=== PATIENT | female | born 2000 | race Caucasian/White ===

== ENCOUNTER 2023-08-16 15:45 | Inpatient (IN) | payer OTHER, SELFPAY ==
[2023-08-16] VITALS (12 sets, daily range): BP systolic 105–132; BP diastolic 68–90; PULSE 72–113; TEMP 36.4; BMI 36.5
[2023-08-16] MEDS: miSOPROStol 25 MCG TABLET 50 MCG BUCCAL ×2 (16:53→21:08)
[2023-08-16 16:55] LABS: Basophils Percent Auto 0.5 % (0.2-1.2); Eosinophils Absolute Auto 0.3 K/mm3 (0-0.3); Eosinophils Percent Auto 2.9 % (0-4.4); Hematocrit 36.8 % (37.0-47.0); Immature Granulocyte Absolute 0.03 K/mm3 (0.00-0.031); Immature Granulocyte Percent A 0.4 % (0-0.5); Lymphocytes Absolute Auto 1.55 K/mm3 (0.9-3.2); Lymphocytes Percent Auto 18.2 % (18.3-44.2); Mean Corpuscular HGB Conc 35.3 g/dl (32-36); Mean Corpuscular Hemoglobin 29.1 pg (26-34); Mean Corpuscular Volume 82.3 fl (80-100); Mean Platelet Volume 11.1 fl (7.4-10.4); Monocytes Absolute Auto 0.9 K/mm3 (0.1-0.6); Monocytes Percent Auto 10.4 % (2.6-8.5); Neutrophils Absolute Auto 5.8 K/mm3 (1.3-6.7); Neutrophils Percent Auto 67.6 % (45.5-73.1); Platelet Count Result 218 k/mm3 (150-375); Red Blood Count 4.47 M/mm3 (4.2-5.4); Red Cell Distribution Width 13.1 % (11.5-14.5); White Blood Count 8.5 K/mm3 (4.5-10.0)
[2023-08-16] MEDS: AMPICILLIN 2 GM/NS 100 ML 2 GM/100 ML BAG IVPB (16:57)
[2023-08-16 17:53] LABS: HIV 1/2 Ab P24 Ag Result Negative (Negative)
[2023-08-16] MEDS: AMPICILLIN 1 GM/NS 50 ML 1 GM/50 ML BAG IVPB (21:00)
--- NOTE | 2023-08-16 22:41 | PM.IMHP ---
H&P: HPI History of Present Illness Date/Time: 08/16/23 22:41 Chief Complaint: elective induction of labor Narrative: Patient is a 22 year old who presents for elective induction of labor. Her has been overall uncomplicated. She denies strong contractions, leakage of fluid or vaginal bleeding. She reports good movement. Denies nausea, vomiting, abdominal pain, or dysuria. Review of Systems Review of Systems: All systems reviewed & are unremarkable except as noted in HPI and below PMFSH Family History Family History Grandparent Leukemia Mother Hypertension Social History Social History Smoking status: Never smoker Second hand tobacco smoke exposure: No Substance use: never Do You Feel Safe in your Home?: Yes Lack of Transportation: No Lack of Food: Never True Current Housing: I Have Housing Concerned About Future Housing: No Difficulty Paying Gas/Electric Bills: No Difficulty Paying for Meds: No Currently Unemployed: No Education: Master's Degree or Higher Difficulty w/ Childcare or Family Care: No Spiritual care concerns: No Meds Home Medications and Allergies Home Medications Medication Instructions Recorded Confirmed Type albuterol 90 mcg/actuation aerosol 90 mcg inhalation PRN PRN Wheezing 07/25/23 07/25/23 History inhaler vits no.126-ferrous fum 1 tablet PO DAILY 07/25/23 07/25/23 History 28 mg iron-folic acid 800 mcg tablet (Classic ) Allergies Allergy/AdvReac Type Severity Reaction Status Date / Time No Known Allergies Allergy Verified 07/25/23 12:32 Vital Signs Vital Signs - 24 hr 08/16/23 16:14 08/16/23 16:29 08/16/23 17:01 Temperature Pulse Rate 113 H 98 99 Blood Pressure 118/78 128/84 113/75 Oxygen Delivery 08/16/23 17:30 08/16/23 17:00 08/16/23 18:00 Temperature 97.6 F Pulse Rate 90 80 Blood Pressure 116/76 121/76 Oxygen Delivery 08/16/23 18:30 08/16/23 19:00 08/16/23 20:00 Temperature Pulse Rate 83 79 72 Blood Pressure 121/84 119/77 117/74 Oxygen Delivery 08/16/23 21:00 08/16/23 22:00 08/16/23 16:21 Temperature Pulse Rate 81 80 Blood Pressure 132/90 123/68 Oxygen Delivery Room Air Exam Const: General: comfortable and no acute distress HENMT: Mouth: Yes moist mucous membranes Resp: Effort & Inspection: normal respiratory effort Cardio: Rate: regular rate Rhythm: regular rhythm Skin: General skin exam: normal color Extrem: General: normal to inspection Psych: Mental Status: mental status grossly normal H&P: Results Labs Labs: Short CBC 08/16/23 Range/Units 16:50 WBC 8.5 (4.5-10.0) K/mm3 Hgb 13.0 (12.0-15.0) g/dL Hct 36.8 L (37.0-47.0) % Plt Count 218 (150-375) k/mm3 Assessment and Plan Assessment and plan (1) Encounter for elective induction of labor: Code(s): Z34.90 - Encounter for supervision of normal , unspecified, unspecified trimester Status: Acute Assessment and Plan: - SVE /-3 on admission per RN - cytotec per protocol - FHR category I
[2023-08-17] VITALS (189 sets, daily range): BP systolic 99–155; BP diastolic 35–135; PULSE 55–120; RESP 18–20; TEMP 36.2–37.3; O2SAT 89–100
[2023-08-17] MEDS: AMPICILLIN 1 GM/NS 50 ML 1 GM/50 ML BAG IVPB ×4 (01:00→12:58)
[2023-08-17] MEDS: miSOPROStol 25 MCG TABLET 50 MCG BUCCAL (01:08)
--- NOTE | 2023-08-17 03:49 | WPDANESEPP ---
Anes - Eval Pre Procedure Procedure: labor epidural Date/Time: 08/17/23 03:49 Surgeon: ritu Preop Diagnosis: pain during labor Pre Op Diagnosis: Induction of Labor Patient Data Age: 22 Gender: F Height: 1.73 m Weight: 109 kg Last Vital Signs Temp 36.4 C 08/16/23 17:00 Pulse 57 L 08/17/23 03:00 BP 121/73 08/17/23 03:00 O2 Del Method Room Air 08/16/23 16:21 Allergies Allergy/AdvReac Type Severity Reaction Status Date / Time No Known Allergies Allergy Verified 07/25/23 12:32 Home Medications Medication Instructions Recorded Confirmed Type albuterol 90 mcg/actuation aerosol 90 mcg inhalation PRN PRN Wheezing 07/25/23 07/25/23 History inhaler vits no.126-ferrous fum 1 tablet PO DAILY 07/25/23 07/25/23 History 28 mg iron-folic acid 800 mcg tablet (Classic ) Laboratory Tests 08/16/23 16:50 WBC 8.5 K/mm3 (4.5-10.0) RBC 4.47 M/mm3 (4.2-5.4) Hgb 13.0 g/dL (12.0-15.0) Hct 36.8 L % (37.0-47.0) MCV 82.3 fl (80-100) MCH 29.1 pg (26-34) MCHC 35.3 g/dl (32-36) RDW 13.1 % (11.5-14.5) Plt Count 218 k/mm3 (150-375) MPV 11.1 H fl (7.4-10.4) Immature Gran % (Auto) 0.4 % (0-0.5) Neut % (Auto) 67.6 % (45.5-73.1) Lymph % (Auto) 18.2 L % (18.3-44.2) [place] % (Auto) 10.4 H % (2.6-8.5) Eos % (Auto) 2.9 % (0-4.4) Baso % (Auto) 0.5 % (0.2-1.2) Lymph # (Auto) 1.55 K/mm3 (0.9-3.2) [place] # (Auto) 0.9 H K/mm3 (0.1-0.6) Eos # (Auto) 0.3 K/mm3 (0-0.3) Baso # (Auto) 0.0 K/mm3 (0.0-0.1) Abs Immat Gran (auto) 0.03 K/mm3 (0.00-0.031) Absolute Neuts (auto) 5.8 K/mm3 (1.3-6.7) Absolute Nucleated RBC 0.000 K/mm3 (0.0-0.012) Nucleated RBC % 0.0 % (0.0-0.2) RPR Pending HIV 1&2 Ab/P24 Ag 4thGn Negative (Negative) Blood Type O Positive Antibody Screen Negative Patient hx anesthesia problems: none Family hx anesthesia problems: none Results Review: All pre-operative results and documents have been reviewed as part of the pre-operative evaluation. [facility] Past Medical History Medical History Asthma Family History Family History Grandparent Leukemia Mother Hypertension Social History Social History Smoking status: Never smoker Second hand tobacco smoke exposure: No Substance use: never Do You Feel Safe in your Home?: Yes Lack of Transportation: No Lack of Food: Never True Current Housing: I Have Housing Concerned About Future Housing: No Difficulty Paying Gas/Electric Bills: No Difficulty Paying for Meds: No Currently Unemployed: No Education: Master's Degree or Higher Difficulty w/ Childcare or Family Care: No Spiritual care concerns: No Exam Day of Procedure 08/17/23 03:49
[2023-08-17] MEDS: LACTATED RINGERS 1,000 ML 125 ML IV CONT ×2 (06:43→12:16)
[2023-08-17] MEDS: SODIUM CHLORIDE 0.9% IV 300 ML 600 ML I-UTERINE (10:04)
--- NOTE | 2023-08-17 10:23 | PM.OBPNLAB ---
Pain Control Date/time seen: 08/17/23 10:23 Pain control: epidural Pelvic Exam Dilation (cm): 4 Amniotic membrane status: Leaking Comments: IUPC in place Status status: Category ll Comments: recurrent variables Assessment and Plan Assessment: induction ongoing Plan: continuous present management Comments: will start pitocin if contraction frequency or strength decreases; ok for amnioinfusion if recurrent variables continue
[2023-08-17 10:32] LABS: Rapid Plasma Reagin Non-Reactive (NonReactive)
[2023-08-17] MEDS: OXYTOCIN 30 UNITS/NS 500 ML 30 UNITS/500 ML BAG IV CONT (14:10)
--- NOTE | 2023-08-17 15:58 | PM.OBPRVD ---
OB - Vaginal Delivery Note Procedure Delivery date: 08/17/23 Events: Elective Induction of Labor Induction method: Per Misoprostol Protocol Delivery augmentation: Rupture of Membranes Delivery monitor: External FHT and Internal Uterine Route of delivery: Episiotomy description: None Laceration Description: Perineal - 2nd Degree Delivery repair: vicryl Specimen: No Quantitative Blood Loss (ml): 100 Anesthesia type: Epidural Disposition: Floor Complications: No immediate complications Narrative: See H&P and notes for details on patient's admission and labor. She progressed to complete cervical dilation and at the appropriate time began pushing. With adequate expulsive efforts by the mother, the baby's head was delivered without difficulty. Nuchal cord was present and delivered through. The baby's right shoulder was anterior and delivered under the pubic symphysis without difficulty. The posterior shoulder and the rest of the baby delivered without difficulty. The umbilical cord was doubly clamped and cut after 60 seconds of delayed cord clamping. Care of the was then assumed by the nursing staff. Baby Date of : 08/17/23 Weeks of gestation at delivery: 39 Infant gender: Male presentation: vertex position: Left Occiput Anterior Placenta delivery description: Expressed Cord Vessel Description: 3 Vessels, Nuchal Cord and Delayed Cord Clamping
[2023-08-17] MEDS: OXYTOCIN 30 UNITS/NS 500 ML 30 UNITS/500 ML BAG 125 UNITS IV CONT (16:17)
[2023-08-17] MEDS: WITCH HAZEL 40 PADS 1 PAD TOPICAL (17:04)
[2023-08-17] MEDS: BENZOCAINE 20% AER SPR (*SP) 56 GM CAN 1 SPRAY TOPICAL (17:04)
[2023-08-17] MEDS: ACETAMINOPHEN 325 MG TABLET 650 MG PO (17:19)
--- NOTE | 2023-08-17 18:47 | OBPPTRN ---
Patient transferred to post room #282 via wheelchair. Support person present. Oriented to unit, room, information board, rooming in, admission packet and security measures. Patient verbalizes understanding.
[2023-08-17] MEDS: IBUPROFEN 600 MG TABLET PO (23:39)
[2023-08-18] MEDS: ACETAMINOPHEN 325 MG TABLET 650 MG PO (03:33)
[2023-08-18 04:08] LABS: Hematocrit 32.3 % (37.0-47.0); Hemoglobin 11.3 g/dL (12.0-15.0)
[2023-08-18 07:35] VITALS: BP 103/57; PULSE 80; RESP 16; TEMP 36.1; O2SAT 100
--- NOTE | 2023-08-18 07:35 | PM.OBPNVD ---
OB - PN: Subj Subjective Date/time seen: 08/18/23 07:35 Interval history: pp day 1 doing well no complaints OB - PN: Obj Data Labs 08/18/23 03:24 Labs: Laboratory Results - last 24 hr 08/16/23 08/18/23 16:50 03:24 Hgb 11.3 L Hct 32.3 L RPR Non-reactive OB - PN A/P Plan day: 1 Plan: routine care Time Spent With Patient Time: Total time spent is greater than 50% in coordination of care (as documented) at patient's floor/unit and/or counseling patient: Review of Systems Review of Systems: All systems reviewed & are unremarkable except as noted in HPI and below Exam Const: General: cooperative and healthy appearing Chest: Chest palpation & inspection: normal inspection of the chest Resp: Effort & Inspection: normal respiratory effort Cardio: Rate: regular rate Rhythm: regular rhythm Neuro: General: patient oriented x3
[2023-08-18] MEDS: IBUPROFEN 600 MG TABLET PO ×2 (08:17→17:11)
[2023-08-18] MEDS: MULTIVIT/MIN/PREN/FOL AC/IRON TABLET 1 TAB PO (08:17)
--- NOTE | 2023-08-18 10:52 | WPDANLDPN2 ---
Anes-Prog Note L&D Date/Time: 08/18/23 10:52 Comfortable throughout: labor and delivery Neuraxial method: epidural Epidural/Spinal procedure site: clean & non-tender Neuro status: Neuro function grossly intact. Cardiovascular status: normal Respiratory status: normal Airway patency: baseline Mental status: baseline Post-Op hydration status: normal Vital Signs: Last Vital Signs Temp 36.1 C L 08/18/23 07:35 Pulse 80 08/18/23 07:35 Resp 16 08/18/23 07:35 BP 103/57 L 08/18/23 07:35 Pulse Ox 100 08/18/23 07:35 O2 Del Method Room Air 08/16/23 16:21 Pain score (VAS): 0/10 I/O: Intake & Output 08/17/23 08/18/23 08/18/23 23:59 07:59 15:59 Output Total 160 Balance -160 Post-procedural complaints: none Patient feedback: Patient satisfied with anesthetic care.
--- NOTE | 2023-08-18 11:45 | PC.NURSE ---
Breast pump provided due to [patient request/desire to pump and bottle feed]. Instructions given on cleaning, care, usage, that there should be no pain, pumping schedule for milk production, collection, and storage of human milk. Patient was assessed for correct placement, flange size, to pump for comfort and nipple stretching/stimulation for adequate milk production every 3 hours (8 times in 24 hours) 1-2 times at night. Mother fitted with a 24mm flange.?Mother voiced understanding of the education shared along with mom/baby guide and the breastmilk storage/usage page of the guide. Reported to the Primary RN.
[2023-08-18 12:31] VITALS: BP 114/71; PULSE 77; RESP 16; TEMP 36.8; O2SAT 99
[2023-08-18 20:15] VITALS: BP 106/64; PULSE 82; RESP 20; TEMP 36.2; O2SAT 99
[2023-08-19] MEDS: IBUPROFEN 600 MG TABLET PO ×2 (03:30→11:34)
[2023-08-19] MEDS: ACETAMINOPHEN 325 MG TABLET 650 MG PO (03:30)
[2023-08-19 08:20] VITALS: BP 110/69; PULSE 64; RESP 16; TEMP 36.2; O2SAT 100
[2023-08-19] MEDS: MULTIVIT/MIN/PREN/FOL AC/IRON TABLET 1 TAB PO (08:22)
--- NOTE | 2023-08-19 09:48 | P.PNOB_ITS ---
OB - PN: Subj Subjective Date/time seen: 08/19/23 09:48 Interval history: pp day 2 doing well no complaints ready for discharge home today OB - PN: Obj Data Labs 08/18/23 03:24 OB - PN A/P Assessment and Plan (1) (spontaneous vaginal delivery): Code(s): O80 - Encounter for full-term uncomplicated delivery Status: Acute Plan day: 2 Plan: routine care and discharge home Time Spent With Patient Time: Total time spent is greater than 50% in coordination of care (as documented) at patient's floor/unit and/or counseling patient: Review of Systems Review of Systems: All systems reviewed & are unremarkable except as noted in HPI and below Exam 2 Const: General: cooperative and healthy appearing Chest: Chest palpation & inspection: normal inspection of the chest Resp: Effort & Inspection: normal respiratory effort Cardio: Rate: regular rate Rhythm: regular rhythm Neuro: General: patient oriented x3
--- NOTE | 2023-08-19 09:50 | PM.OBDSVD ---
DS: Admitting Diagnosis Discharge Date 08/19/23 Admitting Diagnosis elective induction of labor DS: Discharge Diagnosis Discharge Diagnosis (1) (spontaneous vaginal delivery): Code(s): O80 - Encounter for full-term uncomplicated delivery Status: Acute OB - DS: Summary OB Procedures : None OB Procedures Intrapartum: Spontaneous Vag Delivery OB Procedures: : None Peripartum Data Laceration Description: Perineal - 2nd Degree Episiotomy description: None Time Spent with Patient Time attestation: Total time spent providing and/or coordinating discharge services: Discharge Plan Discharge Attending physician on discharge: Caleb Matos Discharging Clinician: Caleb Matos Patient Disposition: Home, Self-Care Activity: may shower and pelvic rest Diet: as tolerated Patient Instructions: Antibiotic Form Stand Alone Forms: General Discharge Information Follow-up/Referrals: Caleb Matos MD [Physician] - 4 Weeks Discharge Medications: New ibuprofen 600 mg Tablet 600 mg PO Q6H PRN (Reason: Cramping) Qty: 30 0RF docusate sodium 100 mg Capsule 100 mg PO BID PRN (Reason: Constipation) Qty: 60 0RF Continued Classic 28 mg iron- 800 mcg Tablet 1 tablet PO DAILY albuterol 90 mcg/actuation Aerosol 90 mcg INHALATION PRN PRN (Reason: Wheezing) Date of admission: 08/16/23 15:45 Primary Care Provider: UNKNOWN,DOCTOR Admitting Provider: Caleb Matos Attending physician on admission: Caleb Matos Condition: Stable
--- NOTE | 2023-08-19 10:20 | PC.NURSE ---
0840. Mom continuing to pump with the hospitals medela pump, she reports no pain with pumping. She reports her plan is to continue to pump and feed infant when she gets home with her mom cozy pump; mom used the flangle fitting guide to measure and properly fit herself with the appropriate size flange. Education given on outpatient services when mom goes home if she needs. Mom with no futher questions or concerns at this time. Reported to primary RN.
--- NOTE | 2023-08-19 11:56 | PC.NURSE ---
Patient viewed the discharge video Mother & Baby Care, The First Two Weeks . Patient was given the opportunity and encouraged to ask questions. Patient verbalized understanding of information shared and has been given the mother/baby guide for home reference.
[2023-08-21 11:25] VITALS: BP 120/90; PULSE 90; RESP 18; TEMP 36.7; O2SAT 99
== END 2023-08-19 12:56 | disposition home or self-care (01) | DRG 807 ==
LOC: ANHLDR 15:51 → ANHOB2 08-17 18:51
PROVIDERS: Admitting Provider Obstetrics & Gynecology; Visit Provider Obstetrics & Gynecology
DX: O99.824 Streptococcus B carrier state complicating childbirth (principal); Z37.0 Single live birth; O70.1 Second degree perineal laceration during delivery; O69.81X0 Labor and delivery complicated by cord around neck, without compression, not applicable or unspecified; Z3A.39 39 weeks gestation of pregnancy
CPT/HCPCS: 36415; 85014; 85018; 85025; 86592; 86703; 86850; 86900; 86901; A9270; G0432; J0290; J2590; J2795; J7030; J7120